=== PATIENT | female | born 2000 | race Asian ===

== ENCOUNTER 2020-12-17 17:25 | Emergency (ER) | payer OTHER ==
[2020-12-17 18:53] LABS: RED BLOOD COUNT 4.86 M/UL (4.00-5.10); WHITE BLOOD COUNT 10.3 K/UL (4.5-11.0)
[2020-12-17 19:18] LABS: BUN/CREATININE RATIO 18 (0-10)
== END 2020-12-17 22:31 | disposition home or self-care (01) ==
LOC: ER1 17:25
PROVIDERS: Physician Assistant
DX: R07.9 Chest pain, unspecified (principal); R06.02 Shortness of breath; J45.909 Unspecified asthma, uncomplicated
CPT/HCPCS: 71045; 80053; 82550; 82553; 83874; 84484; 84703; 85025; 85379; 93005; 99285